=== PATIENT | male | born 1960 | race Hispanic/Latino ===

== ENCOUNTER 2017-11-23 20:32 | Emergency (ER) | payer SELFPAY ==
[~2017-11-23 20:32] MED LIST: ISOVUE-370 76%-LOCM 1 ML ONE
[2017-11-23 21:16] LABS: #Basophils 0.1 thou/uL (0.0-0.2); #Eosinphils 0.3 thou/uL (0.0-0.7); #Lymphocytes 2.1 thou/uL (1.20-3.40); #Monocytes 1.2 thou/uL (0.11-0.59); #Neutrophils 7.6 thou/uL (1.40-6.50); %Basophils 0.5 % (0.0-1.0); %Eosinophils 2.6 % (0.0-10.0); %Monocytes 10.8 % (0.0-10.0); %Neutrophils 67.1 % (42.0-75.0); Hemoglobin 15.8 g/dL (14.0-18.0); Mean Corpuscular HGB CONC 32.7 g/dL (32.0-36.0); Mean Corpuscular Hemoglobin 29.2 pg (27.0-31.0); Mean Corpuscular Volume 89.1 fl (80.0-94.0); Mean Platelet Volume 9.4 fL (7.4-10.4); Platelet Count 145 thou/uL (130-400); Red Blood Cell (RBC) Count 5.41 mill/uL (4.70-6.10); White Blood Cell (WBC) Count 11.3 thou/uL (4.8-10.8)
[2017-11-23] MEDS ORDERED: Ketorolac Tromethamine 30 MG/ML VIAL ONE (21:38)
[2017-11-23 21:39] LABS: Anion Gap 13 mmol/L (10-20); BUN (Urea Nitrogen) 15 mg/dL (8.4-25.7); Calc. Creatinine Clearance 0 mL/min (70-130); Carbon Dioxide 29 mmol/L (22-29); Chloride 101 mmol/L (98-107); Estimated GFR-MDRD 64; Potassium 3.8 mmol/L (3.5-5.1); Sodium 139 mmol/L (136-145)
[2017-11-23 21:40] LABS: ALT (SGPT) 52 U/L (8-55); AST (SGOT) 54 U/L (5-34); Albumin 3.8 g/dL (3.5-5.0); Alkaline Phosphatase 121 U/L (40-150); Bilirubin, Total 0.3 mg/dL (0.2-1.2); Calcium 9.9 mg/dL (7.8-10.44); Globulin 3.5 g/dL (2.4-3.5); Glucose 305 mg/dL (70-105); Protein, Total 7.3 g/dL (6.0-8.3)
[2017-11-23 22:10] LABS: Bilirubin Negative (Negative); Blood, Urine Small (Negative); Clarity CLEAR (Clear); Glucose, Urine (Dipstick) >=1000 mg/dL (Negative); Leukocyte Negative (Negative); Nitrite Negative (Negative); Protein, Urine (Dipstick) 30 mg/dL (Neg-Trace); Specific Gravity, Urine 1.026 (1.002-1.036); pH, Urine 6.5 (5.0-9.0)
[2017-11-23 22:13] LABS: Bacteria/HPF None Seen HPF (None Seen); Hyaline Casts/LPF 4-6 HYALINE CAST LPF (0-3 Hyaline); Pathc Cast-AUWi Flag 0.54 (0-2.49); Squamous Epithelial None Seen HPF (0-3)
--- NOTE | 2017-11-23 22:56 | CT ---
CT ABDOMEN AND PELVIS WITH IV CONTRAST 11/23/17 HISTORY: Right sided abdominal pain and painful urination. FINDINGS: There is mild to moderate right hydronephrosis and hydroureter with an obstructing calculus seen at t he most distal aspect of the right UVJ measuring 5 mm. Just proximal to this larger calculus within t he distal right ureter is a 4 mm calculus present. There are a few nonobstructing right renal calculi identified. Largest within the renal pelvis which measures approximately 11 mm x 5 mm. There is mild right perinephric stranding. No left renal or ureteral calculus is visualized. Vascular calcifications are seen in the coronary ar teries and to a lesser extent infrarenal abdominal aorta. Calcified subcarinal lymph node is seen. There is mild elevation of the right hemidiaphragm with atelectasis present at the right lung base. T he left lung base is clear. Degenerative changes are noted in the spine. Calcified granulomata are seen in the spleen. The liver, pancreas, bilateral adrenal glands and left kidney demonstrate a normal CT appearance. There is colonic diverticulosis. The appendix is not visualized, but there are no secondary signs to suggest appendicitis. No free fluid, fluid collection, or lymphadenopathy seen in the abdomen or pelvis. IMPRESSION: 1. Partially obstructing approximately 5 mm calculus at the right UVJ with a 4 mm calculus seen in the distal right ureter. There is mild to moderate right hydronephrosis. 2. Nonobstructing right renal calculi. 3. Colonic diverticulosis. 1. POS: [facility]
== END 2017-11-23 23:32 | disposition home or self-care (01) ==
LOC: ERS 20:32
DX: N13.2 Hydronephrosis with renal and ureteral calculous obstruction (principal); E11.65 Type 2 diabetes mellitus with hyperglycemia; E78.5 Hyperlipidemia, unspecified; I10 Essential (primary) hypertension; Z79.84 Long term (current) use of oral hypoglycemic drugs; Z79.899 Other long term (current) drug therapy
CPT/HCPCS: 36415; 74177; 80053; 81003; 81015; 85025; 96361; 96374; J1885

== ENCOUNTER 2017-12-23 16:41 | Emergency (ER) | payer SELFPAY ==
[2017-12-23 17:18] LABS: Bilirubin Negative (Negative); Blood, Urine Negative (Negative); Clarity CLEAR (Clear); Glucose, Urine (Dipstick) >=1000 mg/dL (Negative); Leukocyte Negative (Negative); Nitrite Negative (Negative); Protein, Urine (Dipstick) Trace mg/dL (Neg-Trace); Specific Gravity, Urine 1.041 (1.002-1.036); pH, Urine 5.5 (5.0-9.0)
[2017-12-23 17:57] LABS: #Basophils 0.1 thou/uL (0.0-0.2); #Eosinphils 0.2 thou/uL (0.0-0.7); #Lymphocytes 2.4 thou/uL (1.20-3.40); #Monocytes 0.6 thou/uL (0.11-0.59); #Neutrophils 5.1 thou/uL (1.40-6.50); %Basophils 0.9 % (0.0-1.0); %Eosinophils 2.7 % (0.0-10.0); %Lymphocytes 28.7 % (21.0-51.0); %Monocytes 6.7 % (0.0-10.0); Hemoglobin 16.5 g/dL (14.0-18.0); Mean Corpuscular HGB CONC 32.8 g/dL (32.0-36.0); Mean Corpuscular Volume 88.4 fl (80.0-94.0); Platelet Count 129 thou/uL (130-400); RBC Distribution Width 11.9 % (11.5-14.5); White Blood Cell (WBC) Count 8.4 thou/uL (4.8-10.8)
[2017-12-23 18:17] LABS: Anion Gap 15 mmol/L (10-20); BUN (Urea Nitrogen) 15 mg/dL (8.4-25.7); Calc. Creatinine Clearance 0 mL/min (70-130); Calcium 9.4 mg/dL (7.8-10.44); Carbon Dioxide 27 mmol/L (22-29); Chloride 98 mmol/L (98-107); Estimated GFR-MDRD 59; Glucose 388 mg/dL (70-105); Sodium 136 mmol/L (136-145)
== END 2017-12-23 18:29 | disposition home or self-care (01) ==
LOC: ERS 16:41
DX: N48.1 Balanitis (principal); E11.65 Type 2 diabetes mellitus with hyperglycemia; E78.5 Hyperlipidemia, unspecified; I10 Essential (primary) hypertension; G51.0 Bell's palsy; F41.9 Anxiety disorder, unspecified; Z79.84 Long term (current) use of oral hypoglycemic drugs; Z79.899 Other long term (current) drug therapy
CPT/HCPCS: 36415; 80048; 81003; 85025; 99284

== ENCOUNTER 2018-12-27 16:11 | Emergency (ER) | payer MEDICARE ==
[2018-12-27] MEDS ORDERED: Morphine 4 MG/ML VIAL ONE (16:55)
--- NOTE | 2018-12-27 16:59 | RAD ---
LEFT KNEE FOUR VIEWS: 12/27/18 HISTORY: Injury left knee pain. FINDINGS/IMPRESSION: Degenerative changes are seen. No acute fracture or dislocation is identified. There is fullness in t he suprapatellar pouch suspicious for a joint effusion. POS: [facility]
== END 2018-12-27 17:03 | disposition home or self-care (01) ==
LOC: ERS 16:11
DX: M23.92 Unspecified internal derangement of left knee (principal); E11.9 Type 2 diabetes mellitus without complications; E78.5 Hyperlipidemia, unspecified; I10 Essential (primary) hypertension; F41.9 Anxiety disorder, unspecified; Z79.899 Other long term (current) drug therapy; Z79.84 Long term (current) use of oral hypoglycemic drugs
CPT/HCPCS: 96374; J2270

== ENCOUNTER 2019-04-11 16:57 | Emergency (ER) | payer MEDICARE ==
--- NOTE | 2019-04-11 17:36 | RAD ---
EXAM: Chest 2 views: HISTORY: Chest pain COMPARISON: None. FINDINGS: There is a normal-sized cardiomediastinal silhouette. There is no evidence of consolidation, mass, or pleural effusion. Degenerative changes are seen in the spine. IMPRESSION: No evidence of acute cardiopulmonary disease
[2019-04-11 17:52] LABS: #Eosinphils 0.2 thou/uL (0.0-0.7); #Lymphocytes 0.9 thou/uL (1.20-3.40); #Monocytes 0.7 thou/uL (0.11-0.59); #Neutrophils 8.9 thou/uL (1.40-6.50); %Basophils 0.3 % (0.0-1.0); %Eosinophils 1.4 % (0.0-10.0); %Lymphocytes 8.6 % (21.0-51.0); %Monocytes 6.2 % (0.0-10.0); %Neutrophils 83.4 % (42.0-75.0); Hemoglobin 17.5 g/dL (14.0-18.0); Mean Corpuscular HGB CONC 33.6 g/dL (32.0-36.0); Mean Corpuscular Hemoglobin 30.1 pg (27.0-31.0); Mean Corpuscular Volume 89.5 fL (78.0-98.0); Mean Platelet Volume 9.2 fL (7.4-10.4); Platelet Count 137 thou/uL (130-400); RBC Distribution Width 11.5 % (11.5-14.5); Red Blood Cell (RBC) Count 5.83 mill/uL (4.70-6.10); White Blood Cell (WBC) Count 10.6 thou/uL (4.8-10.8)
[2019-04-11 18:14] LABS: ALT (SGPT) 85 U/L (8-55); AST (SGOT) 128 U/L (5-34); Albumin 3.9 g/dL (3.5-5.0); Alkaline Phosphatase 92 U/L (40-150); Anion Gap 15 mmol/L (10-20); BUN (Urea Nitrogen) 13 mg/dL (8.4-25.7); Calc. Creatinine Clearance 0 mL/min (70-130); Calcium 10.3 mg/dL (7.8-10.44); Carbon Dioxide 25 mmol/L (22-29); Chloride 103 mmol/L (98-107); Estimated GFR-MDRD 86; Globulin 3.1 g/dL (2.4-3.5); Glucose 188 mg/dL (70-105); Potassium 4.2 mmol/L (3.5-5.1); Sodium 139 mmol/L (136-145)
--- NOTE | 2019-04-11 18:34 | CT ---
EXAM: CTA of the chest and abdomen HISTORY: Pain in the gut and neck for 1 to 2 weeks. COMPARISON: None TECHNIQUE: Multiple contiguous axial images were obtained a CTA of the chest and abdomen with contras t per aortic dissection protocol. Sagittal and coronal 3-D MIP reformats were performed. FINDINGS: HEART: Normal in size without focal cardiac abnormality. Calcifications in the coronary arteries. PULMONARY ARTERIES: Normal in caliber without filling defects to suggest pulmonary emboli. MEDIASTINUM: No hilar or mediastinal lymphadenopathy. LUNGS: No focal infiltrates or masses. PLEURAL SPACE: No pleural effusion or pneumothorax. CHEST AND ABDOMINAL WALL SOFT TISSUES: Unremarkable LIVER: Unremarkable. GALLBLADDER: Unremarkable. KIDNEYS: 9 mm nonobstructing right renal calcification. ADRENAL GLANDS: 1 mm fatty left adrenal mass may represent a myelolipoma. SPLEEN: Unremarkable. PANCREAS: Unremarkable. BOWEL: Scattered diverticula in the left colon.. RETROPERITONEUM: No lymphadenopathy BONES: Degenerative changes in the spine. ASCENDING THORACIC AORTA: Normal caliber without evidence of dissection or aneurysmal dilatation. DESCENDING THORACIC AORTA: Normal caliber without evidence of dissection or aneurysmal dilatation. ABDOMINAL AORTA: Normal caliber without evidence of dissection or aneurysmal dilatation. CELIAC TRUNK: Patent SMA: Patent PATRICK: Patent RENAL ARTERIES: Bilateral single renal arteries without significant atherosclerotic disease IMPRESSION: 1. No evidence of thoracic or abdominal aortic aneurysm or dissection 2. Nonobstructing right renal calcification 3. Possible left adrenal myelolipoma
[2019-04-11] MEDS ORDERED: Aspirin Chewable 81 MG TAB ONE (18:35)
--- NOTE | 2019-04-14 21:36 | EKG ---
Test Reason : Blood Pressure : / mmHG Vent. Rate : 126 BPM Atrial Rate : 126 BPM P-R Int : 136 ms QRS Dur : 088 ms QT Int : 326 ms P-R-T Axes : 040 014 022 degrees QTc Int : 472 ms Sinus tachycardia Inferior infarct , age undetermined Abnormal ECG Confirmed by DAGOBERTO SWEENEY M.D. ([id number]), editor continuity and script LETICIA BLAIR ([id number]) on 04/14/2019 9:35:24 PM Referred By: Confirmed By:DAGOBERTO SWEENEY M.D.
== END 2019-04-11 21:15 | disposition home or self-care (01) ==
LOC: ERS 16:57
DX: R07.89 Other chest pain (principal); R00.0 Tachycardia, unspecified; R10.9 Unspecified abdominal pain; E78.5 Hyperlipidemia, unspecified; I10 Essential (primary) hypertension; F41.9 Anxiety disorder, unspecified; G51.0 Bell's palsy; Z87.442 Personal history of urinary calculi; Z79.899 Other long term (current) drug therapy
CPT/HCPCS: 36415; 71046; 71275; 80053; 84484; 85025; 93005; 96360

== ENCOUNTER 2019-05-22 07:43 | Outpatient (CLI) | payer MEDICARE ==
--- NOTE | 2019-05-22 08:40 | ULT ---
RIGHT UPPER QUADRANT ULTRASOUND: 05/22/19 HISTORY: Elevated LFTs. FINDINGS: The gallbladder is not satisfactorily visualized due to bowel gas. No definite gallstones, gallbladde r wall thickening or pericholecystic fluid is seen. The common duct measures 5 mm in diameter. The liver demonstrates increased echogenicity consistent with fatty infiltration. The right kidney is normal. The pancreas is not visualized due to overlying bowel gas. No free fluid is seen in the righ t upper quadrant. IMPRESSION: Fatty liver. POS: [facility]
== END 2019-05-22 07:44 | disposition home or self-care (01) ==
LOC: BICULT 07:43
PROVIDERS: ATTEND Family Medicine
DX: R94.5 Abnormal results of liver function studies (principal); K76.0 Fatty (change of) liver, not elsewhere classified
CPT/HCPCS: 36415; 76705; 80053; 80061; 83036

== ENCOUNTER 2019-08-09 11:05 | Emergency (ER) | payer MEDICARE ==
[2019-08-09] MEDS ORDERED: Morphine 4 MG/ML VIAL ONE (12:05)
[2019-08-09] MEDS ORDERED: Ketorolac Tromethamine 30 MG/ML VIAL ONE (12:05)
[2019-08-09 12:50] LABS: #Basophils 0.1 thou/uL (0.0-0.2); #Eosinphils 0.1 thou/uL (0.0-0.7); #Lymphocytes 1.6 thou/uL (1.20-3.40); #Monocytes 0.6 thou/uL (0.11-0.59); #Neutrophils 6.4 thou/uL (1.40-6.50); %Basophils 0.7 % (0.0-1.0); %Eosinophils 1.1 % (0.0-10.0); %Lymphocytes 18.4 % (21.0-51.0); %Monocytes 7.2 % (0.0-10.0); %Neutrophils 72.6 % (42.0-75.0); Hemoglobin 16.1 g/dL (14.0-18.0); Mean Corpuscular HGB CONC 33.3 g/dL (32.0-36.0); Mean Platelet Volume 9.2 fL (7.4-10.4); Platelet Count 132 thou/uL (130-400); RBC Distribution Width 11.3 % (11.5-14.5); Red Blood Cell (RBC) Count 5.37 mill/uL (4.70-6.10); White Blood Cell (WBC) Count 8.9 thou/uL (4.8-10.8)
[2019-08-09 13:10] LABS: ALT (SGPT) 46 U/L (8-55); AST (SGOT) 57 U/L (5-34); Albumin 3.3 g/dL (3.4-4.8); Alkaline Phosphatase 69 U/L (40-110); Anion Gap 12 mmol/L (10-20); BUN (Urea Nitrogen) 12 mg/dL (8.4-25.7); Bilirubin, Total 0.8 mg/dL (0.2-1.2); Calc. Creatinine Clearance 0 mL/min (70-130); Calcium 8.4 mg/dL (7.8-10.44); Carbon Dioxide 28 mmol/L (23-31); Chloride 101 mmol/L (98-107); Estimated GFR-MDRD 73; Globulin 2.3 g/dL (2.4-3.5); Glucose 359 mg/dL (80-115); Lipase 28 U/L (8-78); Potassium 4.1 mmol/L (3.5-5.1); Protein, Total 5.6 g/dL (5.8-8.1); Sodium 137 mmol/L (136-145)
--- NOTE | 2019-08-09 13:56 | CT ---
CT ABDOMEN AND PELVIS NONCONTRAST: HISTORY: Right flank pain. FINDINGS: There is mild distention of the right renal collecting system and ureter to the level of a 0.5 cm nat culus near the right ureterovesicular junction. An additional irregular-shaped calcification is present within the right renal pelvis measuring up to 1.5 cm diameter. No stones are apparent on the left. Left renal collecting system and ureter are d ecompressed. Lack of contrast limits evaluation for other abnormalities. Calcified mediastinal lymph nodes are co nsistent with healed granulomatous disease. Prominent degenerative changes lumbar spine. Diverticul a arise from the colon without adjacent inflammation. Tiny left adrenal myelolipoma is stable. IMPRESSION: 1. Partial obstruction at a 5 mm right ureterovesicular junction calculus. 2. Additional larger right renal calculus. 3. Diverticulosis. No evidence of diverticulitis. POS: [facility]
[2019-08-09 14:43] LABS: Bacteria/HPF None Seen HPF (None Seen); Bilirubin Negative (Negative); Blood, Urine Trace (Negative); Clarity Clear (Clear); Glucose, Urine (Dipstick) Greater than 1000 mg/dL (Negative); Leukocyte Negative Leu/uL (Negative); Mucous/LPF Rare LPF (<2+); Nitrite Negative (Negative); Protein, Urine (Dipstick) 20 mg/dL (Neg-Trace); Squamous Epithelial None Seen HPF (0-3)
== END 2019-08-09 16:58 | disposition home or self-care (01) ==
LOC: ERS 11:05
DX: N20.1 Calculus of ureter (principal); E11.9 Type 2 diabetes mellitus without complications; E78.5 Hyperlipidemia, unspecified; E78.00 Pure hypercholesterolemia, unspecified; I10 Essential (primary) hypertension; F41.9 Anxiety disorder, unspecified; Z79.899 Other long term (current) drug therapy; Z79.84 Long term (current) use of oral hypoglycemic drugs
CPT/HCPCS: 36415; 74176; 80053; 81003; 81015; 83690; 85025; 87086; 96361; 96374; 96375; J1885; J2270

== ENCOUNTER 2019-11-15 11:48 | Outpatient (CLI) | payer MEDICARE ==
--- NOTE | 2019-11-15 15:39 | CT ---
CT abdomen and pelvis noncontrast HISTORY: Right flank pain. Stone. Follow-up. COMPARISON: [facility] 11/13/2019. FINDINGS: Mild distention of the right renal collecting system and ureter has decreased, extending to the level of a calcification at the ureterovesicular junction that now measures 0.6 cm length by 0.4 cm width. The oval calculus within a calyx at the inferior pole of the right kidney now measures up to 1.3 cm length on the coronal reformatted images. Left renal collecting system and ureter are decompressed without stone evident. Lack of contrast limits evaluation for other abnormalities. Prominent degenerative changes with centr al canal stenosis evident at the L2-3 level. 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 No evidence of bowel obstruction. IMPRESSION: Hydroureteronephrosis associated with the partially obstructing right UVJ calculus has de creased since the previous exam, now only mild. Stone now measures up to 6 x 4 mm. Nonobstructing large right renal calculus is stable.
== END 2019-11-15 11:49 | disposition home or self-care (01) ==
LOC: SCSCT 11:48
PROVIDERS: ATTEND Urology
DX: Z12.5 Encounter for screening for malignant neoplasm of prostate (principal); N20.0 Calculus of kidney; E11.9 Type 2 diabetes mellitus without complications; R81 Glycosuria; N13.0 Hydronephrosis with ureteropelvic junction obstruction
CPT/HCPCS: 36415; 74176; 80048; 81001; 83036; 87086; G0103

== ENCOUNTER 2019-11-19 12:51 | Outpatient (CLI) | payer MEDICARE ==
[2019-11-19 14:36] LABS: Hemoglobin 16.4 g/dL (14.0-18.0); Mean Corpuscular HGB CONC 34.4 g/dL (32.0-36.0); Mean Corpuscular Hemoglobin 31.1 pg (27.0-31.0); Mean Corpuscular Volume 90.2 fL (78.0-98.0); Mean Platelet Volume 9.4 fL (7.4-10.4); Platelet Count 149 thou/uL (130-400); RBC Distribution Width 11.4 % (11.5-14.5); Red Blood Cell (RBC) Count 5.27 mill/uL (4.70-6.10); White Blood Cell (WBC) Count 9.1 thou/uL (4.8-10.8)
[2019-11-19 14:43] LABS: INR-International Normal Ratio 0.9; PTT 25.4 SEC (22.9-36.1); Prothrombin Time 12.4 SEC (12.0-14.7)
== END 2019-11-19 12:52 | disposition home or self-care (01) ==
LOC: LABBT 12:51
PROVIDERS: ATTEND Urology
DX: Z01.818 Encounter for other preprocedural examination (principal); N20.1 Calculus of ureter
CPT/HCPCS: 85027; 85610; 85730; 93005; 93010

== ENCOUNTER 2019-11-26 05:31 | Day surgery (SDC) | payer MEDICARE ==
[2019-11-19 13:25] VITALS: BMI 44.1
[2019-11-26] MEDS ORDERED: Levofloxacin 500 mg/D5W 100 ml Premix Bag ONE (06:43)
[2019-11-26] MEDS ORDERED: Iothalamate Meglumine 60% 50 ML VIAL FS ONE (07:06)
[2019-11-26] MEDS ORDERED: Fentanyl 100 MCG/2 ML VIAL ONE ×2 (08:11→11:25)
[2019-11-26] MEDS ORDERED: SUGAMMADEX SODIUM 200 MG/2 ML VIAL ONE (08:11)
--- NOTE | 2019-11-26 08:26 | RAD ---
KUB: COMPARISON: None. HISTORY: Preoperative radiograph for kidney stones. FINDINGS: A single view of the abdomen shows a nonspecific, nonobstructed bowel gas pattern. There is a calcif ication projecting over the right renal shadow measuring approximately 1.6 cm in size. There is a qu estionable calcification projecting over the left renal shadow which is obscured by bowel gas and charbel sures smaller than the other side. Degenerative changes are seen in the spine. IMPRESSION: Right nephrolithiasis. POS: [facility]
[2019-11-26] MEDS ORDERED: Rocuronium Bromide 10 MG/ML (10ML VIAL) ONE (09:55)
[2019-11-26] MEDS ORDERED: Ondansetron PF 4 MG/2 ML Vial ONE (09:55)
[2019-11-26] MEDS ORDERED: Lidocaine 1% PF 5 ML VIAL ONE (09:55)
[2019-11-26] MEDS ORDERED: PHENYLEPHRINE-NS 100 MCG/ML 10 ML SYRINGE ONE (09:55)
[2019-11-26] MEDS ORDERED: PROPOFOL 200 MG/20 ML VIAL ONE (09:55)
[2019-11-26] MEDS ORDERED: Glycopyrrolate 0.2 MG/ML 5 ML SYRINGE ONE (09:55)
[2019-11-26] MEDS ORDERED: EPHEDRINE 25 MG/5 ML SYRINGE ONE (09:55)
[2019-11-26] MEDS ORDERED: Phenazopyridine HCl 97.5 MG TABLET ONE (11:43)
--- NOTE | 2019-11-26 11:56 | RAD ---
RETROGRADE PYELOGRAM: HISTORY: Right ureteral stone. FINDINGS: A series of four images show placement of a right ureteral stent which is in good position. IMPRESSION: Placement of right ureteral stent in good position. POS: [facility]
--- NOTE | 2019-11-26 16:07 | OP ---
DATE OF PROCEDURE: 11/26/2019 PRIMARY CARE PHYSICIAN: Vimal Rosario MD PREOPERATIVE DIAGNOSES: 1. A 59-year-old morbidly obese male with history of right mid pole 1.3 cm stone. 2. Right distal ureteral calculi, 6 mm with non-progression. 3. History of recurrent kidney stone. POSTOPERATIVE DIAGNOSES: 1. A 59-year-old morbidly obese male with history of right mid pole 1.3 cm stone. 2. Right distal ureteral calculi, 6 mm with non-progression. 3. History of recurrent kidney stone. PROCEDURES PERFORMED: Cystoscopy, right retrograde pyelogram, balloon dilatation of the right distal ureter, rigid and flexible ureteroscopy, pyeloscopy, laser lithotripsy, basket extraction of ureteral and large renal calculi, retrograde pyelogram, 6 x 28 double-J ureteral stent placement with distal tail in situ. ANESTHESIA: General. COMPLICATIONS: None apparent. ESTIMATED BLOOD LOSS: None. IV FLUIDS: 1300 mL. SPECIMEN: Stone fragments for chemical analysis. INDICATIONS FOR PROCEDURE AND HISTORY: Mr. Martinez is a 59-year-old morbidly obese diabetic male, disabled, who was referred to ut for right ureteral calculi. Followup CT demonstrated persistent ureteral calculi with non-progression since July 2019. Therefore, he was advised regarding surgical intervention. He also has a large right renal calculi measuring 1.3 cm. Advised regarding treatment options for both renal and ureteral calculi. Risks and complications of the procedure were reviewed with him in detail including, but not limited to bleeding, pain, infection, injury to adjacent organs, urosepsis, possible secondary procedure, ureteral or renal injury, and stricture formation were reviewed. All questions were answered to his satisfaction. He desired to proceed. Increased risk of morbidity/mortality and infection complication due to poorly-controlled diabetes was reviewed with him in detail. His preoperative urine culture is negative. DESCRIPTION OF PROCEDURE: After an informed consent was signed, the patient was taken to the operating room and placed in a dorsal lithotomy position with the genital area prepped and draped in the usual surgical sterile fashion. A 21- Salvadorean cystoscope was utilized for cystoscopy, which demonstrated normal anterior and posterior urethra. Bilateral lobes of the prostate were coapting; however, no significant obstruction. Bladder was entered, which demonstrated normal bladder mucosa. The ureteral orifices were identified in normal anatomical location. At this time, a 0.035 Sensor wire was placed through an open-ended catheter. We performed a retrograde pyelogram first; however, there was distal dilatation of the ureter consistent with hydronephrosis. We carefully negotiated a 0.035 Sensor wire into the right upper pole. Subsequently, we dilated the intramural ureter with a 12-Salvadorean 4-cm balloon dilator uneventfully. Subsequently, we passed a rigid ureteroscope without significant issues. At the area of the previous stone, there was mucosal edema consistent with an impacted obstructing ureteral stone. The stone was just above this, and we pushed the stone proximally rendering the stone free as he was dilated proximally due to chronically obstructing ureteral calculi. We laser lithotripsied the stone into multiple tiny pieces and extracted the fragments with a Zero Tip Nitinol Baskets rendering the ureteral calculi free. At this time, a 10-Salvadorean dual-lumen Access sheath was passed through the safety wire, and a second working wire, 0.035 Super Stiff was placed into the right upper pole. A 10- Salvadorean dual-lumen Access sheath was easily maneuvered to the proximal ureter. At this time, an 11/13-Salvadorean x 40 cm navigator was passed without significant issues in the proximal ureter. A flexible ureteroscope was utilized to survey the collecting system demonstrating a large right mid pole stone. Using 273-micron ball-tip fiber with energy of 1.6 joules in a dust setting, we laser fragmented the large renal pelvic stone into tiny fragments. Most of the stone broke into tiny dustlike debris. There was residual stone in the mid to the upper pole, which we basket extracted. At the end of the procedure, what remained was dustlike stone debris , not of clinical significance. We surveyed the ureter, which demonstrated no evidence of further stone nidus or ureteral mucosa trauma. Again, noted in the distal ureter the area of the distal ureteral stone, which is non-progressive, but bullous edema consistent with obstructing impacting stone. A 6 x 26 double-J ureteral stent was passed over the safety wire, and the wire was subsequently removed. All wires were removed, and the stent was placed without significant issues into the right collecting system. Bladder was completely emptied, and he tolerated the procedure well. He will follow up with me next for cysto and stent pull. He is discharged. Azo p.r.n., Colace p.r.n., Flomax 0.4 mg 1 p.o. daily, Levaquin x10 days, tramadol 50 one to two p.o. q.6 to 8 hours, #40. kub one day before appt Job ID: [id number] [facility]
== END 2019-11-26 13:50 | disposition home or self-care (01) ==
LOC: SDC 05:31
PROVIDERS: ATTEND Urology
PROC: 0TF68ZZ Fragmentation in Right Ureter, Via Natural or Artificial Opening Endoscopic (ICD-10-PCS; principal; 2019-11-26)
PROC: 0T768DZ Dilation of Right Ureter with Intraluminal Device, Via Natural or Artificial Opening Endoscopic (ICD-10-PCS; 2019-11-26)
DX: N13.2 Hydronephrosis with renal and ureteral calculous obstruction (principal); I10 Essential (primary) hypertension; E11.9 Type 2 diabetes mellitus without complications; E78.5 Hyperlipidemia, unspecified; E66.01 Morbid (severe) obesity due to excess calories; Z68.41 Body mass index [BMI] 40.0-44.9, adult; Z79.84 Long term (current) use of oral hypoglycemic drugs; Z79.899 Other long term (current) drug therapy; Z87.442 Personal history of urinary calculi; Z88.0 Allergy status to penicillin
CPT/HCPCS: 74018; 74420; 82365; 88300; C1758; C1769; J1956; J2001; J2405; J2704; J3010

== ENCOUNTER 2019-12-05 16:08 | Outpatient (CLI) | payer MEDICARE ==
--- NOTE | 2019-12-05 16:38 | RAD ---
ABDOMEN ONE VIEW: 12/05/19 INDICATION: Stent placement. COMPARISON: Prior exam dated 11/26/19. Retrograde evaluation dated 11/26/19. FINDINGS: Since the comparison examination, the right sided ureteral stent is unchanged in position. No suspici ous calcification seen along the course of the ureteral stent. Small residual calcification is seen a long the superior pole of the right kidney. No suspicious calcification overlying the left kidney. Vandana ng bases are clear. Bowel gas pattern is unobstructed. IMPRESSION: 1. Small 6 mm residual stone fragment seen involving the superior pole of the right kidney. 2. Right ureteral stent projects in the expected position. POS: [facility]
== END 2019-12-05 16:09 | disposition home or self-care (01) ==
LOC: LABBT 16:08
PROVIDERS: ATTEND Urology
DX: N20.0 Calculus of kidney (principal); Z96.0 Presence of urogenital implants
CPT/HCPCS: 74018

== ENCOUNTER 2020-08-06 14:46 | Observation (INO) | payer MEDICARE, OTHER ==
[2020-08-06 16:32] LABS: Acetaminophen Less than 6.0 mcg/mL (10.0-30.0); Alcohol Less than 10 mg/dL (Less than 10); Salicylate Less than 8.0 mg/dL (15.0-30.0)
[2020-08-06] MEDS ORDERED: Dextrose 50% Abboject 50 ML SYRINGE SLOW IVP PRN (16:34)
[2020-08-06] MEDS ORDERED: Dextrose 5% in Water 1,000 ML IV PRN (16:34)
[2020-08-06 17:09] LABS: Bilirubin Negative (Negative); Blood, Urine Negative (Negative); Clarity Clear (Clear); Glucose, Urine (Dipstick) >=1000 mg/dL (Negative); Ketone, Urine Negative (Negative); Leukocyte Negative Leu/uL (Negative); Nitrite Negative (Negative); Protein, Urine (Dipstick) 10 mg/dL (Neg-Trace); Urobilinogen Normal mg/dL (Less than 2)
[2020-08-06 17:12] LABS: Specific Gravity, Urine Greater than 1.060 (1.002-1.036)
[2020-08-06 17:15] LABS: Amphetamine Not Detected (NotDetected); Barbiturates Screen Not Detected (NotDetected); Benzodiazepine Screen Not Detected (NotDetected); Cocaine Metabolite Screen Not Detected (NotDetected); Medtox Control Line Valid? VALID (VALID); Medtox Reader # READER 4; Methadone Not Detected (NotDetected); Methamphetamine Not Detected (NotDetected); Opiate Screen Not Detected (NotDetected); Oxycodone Screen Not Detected (NotDetected); Phencyclidine (PCP) Not Detected (NotDetected); THC/Cannabinoid Screen Not Detected (NotDetected); Tricyclic Screen Not Detected (NotDetected)
[2020-08-06] MEDS ORDERED: HumaLOG 300 UNITS/3 ML VIAL SC SCH (17:15)
[2020-08-06] MEDS ORDERED: predniSONE 20 MG TAB PO SCH (17:30)
--- NOTE | 2020-08-06 17:47 | HP ---
CHIEF COMPLAINT: Right-sided weakness and slurred speech. HISTORY OF PRESENT ILLNESS: The patient is a 60-year-old male with a past medical history of hypertension, diabetes, obesity, and hyperlipidemia, who presents to the hospital with complaints of right-sided droopiness and slurred speech. The patient states that Tuesday night he felt unwell, went to bed, woke up Tuesday. He initially had a headache and thought it was most likely allergies. However, when he woke up Tuesday, he still felt not well, and Tuesday, he started noticing some slurred speech. However, the patient thought that he attributed it to possible Rojas palsy that he has had on the left side in the past. He then started to have worsening symptoms, so he came into the ER this morning for further evaluation. The patient denies any fevers, chills, any sick contacts, any nausea, vomiting, diarrhea, or any chest pain. He states he is very compliant with his medications. PAST MEDICAL HISTORY: 1. Diabetes, type 2. 2. Hyperlipidemia. 3. Obesity. 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 5. Hypertension. 6. Kidney stones. PAST SURGICAL HISTORY: 1. He has had a kidney stone removed. 2. Left shoulder. 3. Left palm surgery. SOCIAL HISTORY: He denies any alcohol use, drug use, or smoking history. He is a full code. Lives at home with his son. REVIEW OF SYSTEMS: All negative except for the ones mentioned above in HPI. FAMILY HISTORY: No history of heart disease or strokes. PHYSICAL EXAMINATION: VITAL SIGNS: Temperature of 98.0, O2 saturations 96, respirations 18, blood pressure 115/58, and pulse of 70. GENERAL: He is awake, alert, and oriented x3. Does not appear in distress. CV: S1 and S2 present. No murmurs, rubs, or gallops. LUNGS: Clear to auscultation. No rhonchi or wheezes noted. ABDOMEN: Soft, obese. Bowel sounds are present x2. EXTREMITIES: No edema. Pedal pulses are present x2 neurovascular collins. NEUROLOGIC: He does have a significant facial droop on the right side. He is unable to raise his right eyebrows compared to the left side. He is able to lift his left eyebrow. His pupils are equal and reactive. Upper motor strength and lower motor strength are equal. SKIN: No cuts, lesions, or bruises noted. LABORATORY DATA: Troponin is negative. WBCs of 7.8, hemoglobin of 15.6, hematocrit of 48.4, and his platelets are 102. Chemistry: Sodium of 141, potassium of 4.1, BUN of 13, creatinine 0.97, and his blood sugar was 359. His BNP was normal. The patient had a CTA and a CT head. CTA indicated no hemodynamically significant stenosis, occlusion, or aneurysm formation. He did have a CT head, which indicated a lacunar infarct of indeterminate age in the right thalamus. No acute cortical infarct or hemorrhages seen. ASSESSMENT AND PLAN: The patient is a very pleasant 60-year-old man who comes into the hospital with right-sided facial weakness and slurred speech. 1. Right-sided facial droop. This could be possible Rojas palsy versus stroke. His CT head indicated a lacunar right thalamic stroke, which is not consistent with his symptoms. He is unable to raise his right eyebrows up and he has significant drooping on the right side. We will get an MRI brain. We will get an echocardiogram and he already had a CTA. I will get Neurology to see this patient. We will start him on aspirin and statin and we will continue to monitor. However, I believe this could most likely be Rojas palsy. 2. Obesity. Asked him to get a sleep study done since he does snore quite a bit. 3. Hypertension. We will hold off on his blood pressure medications. His blood pressure has been stable. 4. Diabetes. His hemoglobin A1c was 9.3. This was done in 06/2020. I will not repeat that. I will check a lipid panel on him. We will hold off on his oral medications and start him on some insulin. 5. Deep vein thrombosis prophylaxis. We will put the patient on subcutaneous heparin. Job ID: [id number]
[2020-08-06 19:23] VITALS: BMI 46.7
[2020-08-06 19:29] LABS: Troponin I 0.011 ng/mL (< 0.028)
[2020-08-06] MEDS ORDERED: Insulin Glargine 10 UNITS in Pre-Filled Syringe 1 EACH SC SCH (21:00)
[2020-08-06] MEDS ORDERED: Enoxaparin Sodium 40 MG/0.4 ML SYRINGE SC SCH (21:00)
[2020-08-06] MEDS ORDERED: Atorvastatin Calcium 40 MG TAB PO SCH (21:00)
[2020-08-06] MEDS: Famotidine 20 MG TAB PO SCH (22:43)
[2020-08-06] MEDS: Gabapentin 300 MG CAP PO SCH (22:44)
[2020-08-06] MEDS ORDERED: Loratadine 10 MG TAB PO SCH (22:45)
[2020-08-07 05:27] LABS: Cardiac Risk 3.2 (Less than 4.5)
[2020-08-07] MEDS: HumaLOG 300 UNITS/3 ML VIAL SC PRN ×2 (07:15→12:06)
[2020-08-07] MEDS ORDERED: predniSONE 20 MG TAB PO SCH (08:00)
[2020-08-07] MEDS ORDERED: Aspirin 325 mg Enteric Coated Tablet PO SCH (09:00)
[2020-08-07] MEDS ORDERED: Alogliptin 25 MG TAB PO SCH (09:00)
[2020-08-07] MEDS: Famotidine 20 MG TAB PO SCH (09:16)
[2020-08-07] MEDS: Gabapentin 300 MG CAP PO SCH (09:16)
--- NOTE | 2020-08-07 11:37 | MRI ---
Exam: Brain MRI without contrast HISTORY: Stroke. COMPARISON: 03/01/2016 FINDINGS: Calvarial marrow signal intensity: Appropriate T1 signal Gradient echo sequence: No hemorrhage Brain parenchyma: No mass, mass effect or midline shift. Brain volume, age-appropriate. Cortical yepez-white matter differentiation: Preserved Restricted diffusion: Central arterial flow voids are maintained. Absent restricted diffusion White matter signal intensities: T2, FLAIR white matter hyperintensities due to chronic small vessel ischemic changes Sinuses: Adequate aeration of the paranasal sinuses and mastoid air cells. IMPRESSION: 1. Age-appropriate brain volume loss. Chronic small vessel ischemic changes white matter. 2. Absent restricted diffusion. No acute infarct.
[2020-08-07 12:56] LABS: SARS-CoV-2 MS2 Positive; SARS-CoV-2 N Gene Negative; SARS-CoV-2 S Gene Negative; SARS-CoV-2 by NAA Not Detected (NotDetected); SARS-CoV-2 orf1ab Negative
--- NOTE | 2020-08-07 13:19 | CON ---
NEUROLOGY CONSULTATION DATE OF CONSULTATION: 08/07/2020 REASON FOR CONSULTATION: Right facial palsy. HISTORY OF PRESENT ILLNESS: Mr. Martinez is a 60-year-old male with history significant for hypertension, diabetes, obesity, and hyperlipidemia, presented with right facial droop, slurred speech, some problem with swallowing, and decreased sensation on the right side of the face, and is unable to close the right eye. Per patient, he was not feeling well when he went to bed on Tuesday and then woke up with headache, noticed slurred speech, and then the right facial droop. The patient thought that he attributed to possible Rojas palsy, which he had before on the left side of the face. The symptoms worsened, so he decided to come to the emergency room for further evaluation. The patient denies any focal weakness, focal paresthesias, nausea, vomiting, chest pain, abdominal pain, vertigo, dizziness, loss of vision, blurred vision, loss of consciousness associated with the episode. REVIEW OF SYSTEMS: All systems were reviewed and were negative except the pertinent positives and negatives mentioned in the HPI. PAST MEDICAL HISTORY: Diabetes, hypertension, obesity, Rojas palsy on left side, hypertension, and kidney stone. PAST SURGICAL HISTORY: Kidney stone removal, left shoulder surgery, and left arm surgery. SOCIAL HISTORY: The patient lives at home with his son. Denies smoking, alcohol, or illegal drug use. FAMILY HISTORY: No significant family history of heart disease or stroke. Allergies: No known drug allergies PHYSICAL EXAMINATION: VITAL SIGNS: Blood pressure 115/50, pulse 80, respiratory rate 18. CVS: Regular rate and rhythm. CHEST: Clear. ABDOMEN: Soft. NECK: Supple. NEUROLOGIC: Mental status; the patient is alert and oriented to person, place, and time. Recent and remote memory intact. Fund of knowledge is appropriate. Speech is dysarthric. Cranial nerves 2 through 12 intact except 5, decreased sensation to pinprick and light touch in the V1, V2, V3 distribution; and 7, right facial droop, weakness of the right orbicularis tiburcio and orbicularis oculi, unable to raise the eyebrows; and 9 and 10, problem with swallowing and dysarthria. Data reviewed: MRI of the brain reviewed which was negative for acute intracranial pathology ASSESSMENT AND PLAN: Mr. 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 Head CT negative for acute intracranial pathology. The patient's deficits are localized to the face with no focal paresthesias or weakness. 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 MRI of the brain reviewed, which was negative for acute intracranial pathology. Continue neuro checks every 4 hours. PT/OT/speech. Continue home medications. Strict control of blood pressure and blood glucose. Continue medical management per primary team. Plan discussed in detail with the patient and also with the nursing staff Thank you for the consult. Job ID: [id number] [facility]
[2020-08-07 15:52] VITALS: BP 134/94; TEMP 97.8
[2020-08-07] MEDS ORDERED: FLU VACC QS2020-21(6MOS UP)/PF 60 MCG/0.5 ML SYRINGE IM ONE (21:00)
[2020-08-07] MEDS ORDERED: Loratadine 10 MG TAB PO SCH (21:00)
--- NOTE | 2020-08-08 11:24 | DIS ---
DATE OF ADMISSION: 08/06/2020 DATE OF DISCHARGE: 08/07/2020 DISCHARGE DIAGNOSES: 1. Rojas's palsy. 2. Diabetes. 3. Hyperlipidemia. 4. Obesity. 5. Hypertension. CONSULTATIONS CALLED: Neurology. HOSPITAL COURSE: Mr. Martinez is a 60-year-old gentleman with past medical history of hypertension, diabetes, Rojas's palsy, and dyslipidemia. He presented to emergency room on a consult for new onset right-sided droopiness and slurred speech of 3 or 4 days' duration. The patient had woken up 2 days prior to presentation and noted he had a headache; however, this was not associated with slurred speech. The patient presented to the emergency room for further evaluation. Upon presentation to the emergency room, he was admitted. He had CT of the brain that did not show any acute findings. He therefore went on to have an MRI of the brain that showed no acute infarct. He was also seen by Neurology who felt that the patient's symptoms were due to Rojas's palsy and not an acute CVA. Recommendations were for the patient to be treated with steroids and to follow up as an outpatient. DISCHARGE PHYSICAL EXAMINATION: GENERAL: Elderly gentleman, in no acute distress. HEENT: Not pale. No jaundice. Pupils are equal and reactive to light and accommodation. Extraocular movements are intact. NECK: Supple. No JVD. No thyromegaly. No bruits. CARDIOVASCULAR SYSTEM: First and second heart sounds are heard. No murmurs, rubs, or gallops. ABDOMEN: Bowel sounds are positive. Nondistended. Nontender. EXTREMITIES: No cyanosis. No clubbing. No edema. CENTRAL NERVOUS SYSTEM: The patient has slight facial droop from his new diagnosis of Rojas's palsy. DISCHARGE MEDICATIONS: The patient was discharged on prednisone 40 mg b.i.d. for 1 week. He will continue his other home medications. FOLLOWUP: The patient is advised to follow up with his PCP and Neurology in the next 2 to 4 weeks. Job ID: [id number] [facility]
== END 2020-08-07 16:17 | disposition home or self-care (01) ==
LOC: ERS 14:46 → 2SE 15:54
PROVIDERS: ADMIT Internal Medicine; ATTEND Internal Medicine
DX: G51.0 Bell's palsy (principal); E11.9 Type 2 diabetes mellitus without complications; E78.5 Hyperlipidemia, unspecified; E66.9 Obesity, unspecified; I10 Essential (primary) hypertension; Z68.42 Body mass index [BMI] 45.0-49.9, adult; Z79.899 Other long term (current) drug therapy; Z88.0 Allergy status to penicillin; Z20.828 Contact with and (suspected) exposure to other viral communicable diseases
CPT/HCPCS: 70551; 80061; 80306; 80307; 81003; 82962 ×2; 84484; 93005; 96372; 97116; 97139 ×2; 99285; G0378 ×3; U0003; 36415; 36416; 87635; J1650; J1815; J7512

== ENCOUNTER 2020-11-12 10:36 | Outpatient (CLI) | payer MEDICARE ==
--- NOTE | 2020-11-12 12:11 | RAD ---
KUB: Date: 11/12/2020 HISTORY: Renal calculi. COMPARISON: 08/18/2020 exam. FINDINGS: Renal outlines are obscured by overlying gas and stool, particularly the right kidney. I do not appre ciate any definitive renal or ureteral calculi. Arthritic changes of the spine and hips are noted. IMPRESSION: No definitive renal calculi. POS: [facility]
== END 2020-11-12 10:37 | disposition home or self-care (01) ==
LOC: BICRAD 10:36
PROVIDERS: ATTEND Urology
DX: N20.0 Calculus of kidney (principal)
CPT/HCPCS: 74018; 80048; 80061; 80076; 81001; 82306; 83036; 85025; G0103; 36415

== ENCOUNTER 2022-11-08 14:39 | Outpatient (CLI) | payer MEDICARE | END 2022-11-08 14:40 | disposition home or self-care (01) | LOC: SCSRAD 14:39 | PROVIDERS: ATTEND Family Medicine | DX: M25.561 Pain in right knee (principal); M25.562 Pain in left knee; M17.12 Unilateral primary osteoarthritis, left knee ==

== ENCOUNTER 2023-03-24 09:19 | Outpatient (CLI) | payer MEDICARE ==
[2023-03-24 10:17] LABS: #Basophils 0.1 10x3/uL (0.0-0.2); #Eosinphils 0.3 10x3/uL (0.0-0.5); #Monocytes 0.6 10x3/uL (0.0-1.1); #Neutrophils 3.7 10x3/uL (1.5-8.4); %Basophils 1.3 % (0.0-2.0); %Eosinophils 4.6 % (0.0-6.0); %Lymphocytes 24.8 % (18.0-47.0); %Monocytes 9.5 % (0.0-10.0); %Neutrophils 59.5 % (40.0-75.0); Hemoglobin 15.7 g/dL (13.5-17.5); Mean Corpuscular HGB CONC 33.1 g/dL (32.0-36.0); Mean Corpuscular Hemoglobin 29.2 pg (27.0-33.0); Mean Corpuscular Volume 88.3 fl (81.2-95.1); Mean Platelet Volume 10.9 fl (7.4-10.4); Platelet Count 158 10x3/uL (150-450); RBC Distribution Width 12.3 % (11.5-14.5); Red Blood Cell (RBC) Count 5.37 10x6/uL (4.32-5.72); White Blood Cell (WBC) Count 6.3 10x3/uL (3.5-10.5)
[2023-03-24 10:40] LABS: Prothrombin Time 10.9 sec (9.5-12.1)
[2023-03-24 10:43] LABS: Anion Gap 14 mmol/L (10-20); BUN (Urea Nitrogen) 14 mg/dL (8.4-25.7); Calc. Creatinine Clearance 0 mL/min (70-130); Calcium 9.5 mg/dL (7.8-10.44); Carbon Dioxide 24 mmol/L (23-31); Chloride 106 mmol/L (98-107); Estimated GFR 97; Glucose 115 mg/dL (80-115); Potassium 3.9 mmol/L (3.5-5.1); Sodium 140 mmol/L (136-145)
== END 2023-03-24 09:20 | disposition home or self-care (01) ==
LOC: LABBT 09:19
PROVIDERS: ATTEND Orthopaedic Surgery
DX: Z01.818 Encounter for other preprocedural examination (principal); M17.12 Unilateral primary osteoarthritis, left knee
CPT/HCPCS: 80048; 85025; 85610; 87081; 93005; 93010

== ENCOUNTER 2023-03-29 06:08 | Observation (INO) | payer MEDICARE ==
[2023-03-24 09:55] VITALS: BMI 38.4
[2023-03-29] MEDS ORDERED: Tranexamic Acid 1,000 MG/10 ML VIAL ONE ×2 (07:44→12:22)
[2023-03-29] MEDS ORDERED: Sodium Chloride 0.9% 0 ML ONE (07:44)
[2023-03-29] MEDS ORDERED: Vancomycin (BATCH) 1.5 GRAM/300 ML BAG ONE (07:45)
[2023-03-29] MEDS ORDERED: Midazolam HCl 2 mg/2 ml Vial ONE (08:04)
[2023-03-29] MEDS ORDERED: fentaNYL 50 mcg/mL 1 mL Vial ONE ×4 (08:04→11:49)
[2023-03-29] MEDS ORDERED: Bupivacaine PF 0.5% 30 ML VIAL ONE (08:05)
[2023-03-29] MEDS ORDERED: Bupivacaine HCl 0.5%/Epinephrine 1:200,000/PF 30 ml Vial ONE (08:30)
[2023-03-29] MEDS ORDERED: PROPOFOL 200 MG/20 ML VIAL ONE (08:30)
[2023-03-29] MEDS ORDERED: Lidocaine 1% PF 5 ML VIAL ONE (08:30)
[2023-03-29] MEDS ORDERED: Ondansetron PF 4 MG/2 ML Vial ONE (08:30)
[2023-03-29] MEDS ORDERED: Bupivacaine/Epinephrine 0.25% 30 ML VIAL ONE (09:01)
[2023-03-29] MEDS ORDERED: CEFAZOLIN 2 GM VIAL ONE (09:19)
[2023-03-29] MEDS ORDERED: Sodium Chloride 0.9% 100 ML ONE (09:19)
[2023-03-29] MEDS ORDERED: Levofloxacin 500 mg/D5W 100 ml Premix Bag ONE (09:25)
[2023-03-29] MEDS ORDERED: Clindamycin/D5W 900 mg/50 ml Premix Bag ONE (09:25)
[2023-03-29] MEDS ORDERED: fentaNYL 50 mcg/mL 1 mL Vial SLOW IVP PRN ×2 (09:39→18:14)
[2023-03-29] MEDS ORDERED: Ropivacaine 0.2% 550 ML 550 ML NERVE BLCK SCH ×2 (09:45→18:15)
[2023-03-29] MEDS ORDERED: traMADol HCl 50 MG TAB PO PRN ×4 (09:45→18:15)
[2023-03-29] MEDS ORDERED: Promethazine HCl 25 MG/ML VIAL IM PRN ×3 (09:45→18:15)
[2023-03-29] MEDS ORDERED: Ondansetron PF 4 MG/2 ML Vial IVP PRN ×3 (09:45→18:15)
[2023-03-29] MEDS ORDERED: Zolpidem Tartrate 5 MG TAB PO PRN ×3 (09:45→18:15)
[2023-03-29] MEDS ORDERED: HYDROcodone/Acetaminophen 10/325 mg Tablet PO PRN ×3 (09:45→18:15)
[2023-03-29] MEDS ORDERED: HYDROmorphone 2 MG/ML VIAL SLOW IVP PRN (11:47)
[2023-03-29] MEDS ORDERED: Ondansetron HCl/PF 4 MG/2 ML Vial IVP PRN (11:47)
[2023-03-29] MEDS: Ketorolac Tromethamine 30 MG/ML VIAL IVP SCH ×2 (12:00→20:29)
[2023-03-29] MEDS ORDERED: diphenhydrAMINE 25 MG CAP PO PRN (12:28)
[2023-03-29] MEDS ORDERED: Acetaminophen 325 MG TAB PO PRN (12:28)
[2023-03-29] MEDS ORDERED: HYDROmorphone 0.5 MG/0.5 ML SYRINGE ONE ×3 (12:44→15:04)
[2023-03-29] MEDS: Clindamycin/D5W 600 MG in Premix Bag 1 BAG IVPB SCH ×2 (16:00→21:44)
[2023-03-29] MEDS ORDERED: Fluticasone Propionate Nasal Spray 16 gm Bottle NASAL PRN (18:27)
[2023-03-29] MEDS: Sodium Chloride 0.9% 1,000 ML IV SCH (20:17)
[2023-03-29] MEDS ORDERED: Atorvastatin Calcium 20 MG TAB PO SCH (21:00)
[2023-03-29] MEDS: Gabapentin 300 MG CAP PO SCH (21:45)
[2023-03-29] MEDS: Aspirin 81 mg Enteric Coated Tablet PO SCH (21:45)
[2023-03-29] MEDS: HYDROcodone/Acetaminophen 10/325 mg Tablet PO PRN (21:46)
[2023-03-29] MEDS ORDERED: Ketorolac Tromethamine 30 MG/ML VIAL IVP SCH (23:59)
[2023-03-30] MEDS: Sodium Chloride 0.9% 1,000 ML IV SCH ×2 (00:42→08:51)
[2023-03-30] MEDS: Ketorolac Tromethamine 30 MG/ML VIAL IVP SCH ×3 (00:49→12:40)
[2023-03-30] MEDS: Clindamycin/D5W 600 MG in Premix Bag 1 BAG IVPB SCH (05:13)
[2023-03-30] MEDS: HYDROcodone/Acetaminophen 10/325 mg Tablet PO PRN ×2 (05:14→09:27)
[2023-03-30 05:36] LABS: Hemoglobin 12.5 g/dL (14.0-18.0); Platelet Count 123 10x3/uL (130-400); RBC Distribution Width 12.1 % (11.5-14.5)
[2023-03-30 05:38] LABS: Mean Corpuscular HGB CONC 32.6 g/dL (32.0-36.0); Mean Corpuscular Volume 92.1 fl (78.0-98.0); Mean Platelet Volume 11.1 fL (7.4-10.4); Red Blood Cell (RBC) Count 4.17 mill/uL (4.70-6.10); White Blood Cell (WBC) Count 8.7 10x3/uL (4.8-10.8)
[2023-03-30] MEDS ORDERED: glipiZIDE 10 MG TAB PO SCH (07:30)
[2023-03-30] MEDS ORDERED: Ferrous Gluconate 324 MG TAB PO SCH (08:00)
[2023-03-30] MEDS ORDERED: Meloxicam 15 MG TAB PO SCH (09:00)
[2023-03-30] MEDS ORDERED: Amlodipine 5 MG TAB PO SCH (09:00)
[2023-03-30] MEDS ORDERED: Multivitamin W/ Minerals 1 TAB PO SCH (09:00)
[2023-03-30] MEDS ORDERED: Lisinopril 20 MG TAB PO SCH (09:00)
[2023-03-30] MEDS ORDERED: Senokot S 8.6-50 MG TAB PO SCH (09:00)
[2023-03-30] MEDS: Gabapentin 300 MG CAP PO SCH (09:02)
[2023-03-30] MEDS: Aspirin 81 mg Enteric Coated Tablet PO SCH (09:03)
[2023-03-30 09:47] VITALS: BP 131/77; TEMP 98
== END 2023-03-30 12:44 | disposition home or self-care (01) ==
LOC: SDC 06:08 → SJJU 12:28
PROVIDERS: ADMIT Orthopaedic Surgery; ATTEND Orthopaedic Surgery
PROC: 0SRD0JZ Replacement of Left Knee Joint with Synthetic Substitute, Open Approach (ICD-10-PCS; principal; 2023-03-29)
DX: M17.0 Bilateral primary osteoarthritis of knee (principal); I34.0 Nonrheumatic mitral (valve) insufficiency; I50.30 Unspecified diastolic (congestive) heart failure; I11.0 Hypertensive heart disease with heart failure; E55.9 Vitamin D deficiency, unspecified; E78.5 Hyperlipidemia, unspecified; N20.0 Calculus of kidney; G47.33 Obstructive sleep apnea (adult) (pediatric); Z86.16 Personal history of COVID-19; Z79.899 Other long term (current) drug therapy; Z88.0 Allergy status to penicillin
CPT/HCPCS: 27447; 73560; 82962; 85027; 97110 ×2; 97116 ×2; 97530 ×2; A4306; J3010; J3370; 36415; 36416; 96365; 96366; 96375; 96376; C1776; G0378; J1170; J1885; J1956; J2250; J2405; J2704; J2795; J3490; S0020